=== PATIENT | male | born 1995 | race Caucasian/White ===

== ENCOUNTER 2016-10-18 06:39 | Emergency (ER) | payer OTHER ==
[2016-10-18] MEDS ORDERED: FENTANYL 250 MCG/5 ML VIAL ONE (07:00)
[2016-10-18] MEDS ORDERED: KETOROLAC TROMETHAMINE 30 MG/ML VIAL ONE (07:16)
[2016-10-18] MEDS ORDERED: HYDROmorphone HCL 1 MG/ML SYR ONE (07:16)
[2016-10-18] MEDS ORDERED: ONDANSETRON HCL 4 MG/2 ML VIAL ONE (07:17)
--- NOTE | 2016-10-18 08:25 | ER NURSING DOCUMENTATION ---
Nurse's Notes [facility] Name:Alberto Arias Age:21 yrs Sex:Male :1995 Arrival Date:10/18/2016 Time:06:39 Bed4 Private MD:Physician, No Diagnosis:Kidney Stone w/ Colic;Dehydration Presentation: 10/18 06:44 Acuity: LUPE 3 tg 07:20 Presenting complaint: Patient states: Pt awoke this AM to sudden, severe, right flank tg pain. No hx of kidney stones. 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 Transition of care: patient was not received from another setting of care. 07:20 Method Of Arrival: EMS: 410 tg Triage Assessment: 07:22 General: Appears in no apparent distress, Behavior is cooperative. Pain: Complains of tg pain in posterior aspect of right lateral abdomen. Neuro: Level of Consciousness is awake, alert. Respiratory: Respiratory effort is even, unlabored. Derm: Skin is pink, warm & dry. Musculoskeletal: Historical: - Allergies: No known drug Allergies; - Home Meds: 1. None - PMHx: None; - PSHx: None; - Tetanus: < 10 years. - Ebola Screening: : Patient negative for fever greater than or equal to 101.5 degrees Fahrenheit, and additional compatible Ebola Virus Disease symptoms. Patient denies exposure to infectious person. Patient denies travel to an Ebola-affected area in the 21 days before illness onset. No symptoms or risks identified at this time. . - Immunization history: Flu Vaccine >1 year. - Social history: Smoking status: Patient states was never smoker of tobacco. Screenin:23 Infectious Disease Risk Unable to Obtain. Abuse screen: Denies threats or abuse. Denies tg injuries from another. Nutritional screening: No deficits noted. Assessment: 07:23 See Triage Assessment done by same RN. tg Vital Signs: 07:00 BP 138 / 72; Pulse 83; Resp 14; Temp 98.2(O); Pulse Ox 94% ; Weight 106.59 kg (R); tg Height 6 ft. 1 in. (185.42 cm) (R); Pain 5/10; 08:23 BP 107 / 51; Pulse 59; Resp 14; Pulse Ox 92% on R/A; Pain 1/10; tg 07:00 Body Mass Index 31.00 (106.59 kg, 185.42 cm) tg Reid Coma Score: 07:15 Eye Response: spontaneous(4). Verbal Response: oriented(5). Motor Response: obeys cd commands(6). Total: 15. ED Course: 06:40 Patient arrived in ED. em2 06:40 Physician, No is Private Physician. em2 06:42 Avery Corley MD is Attending Physician. cd 06:44 Triage completed. tg 07:02 Meng Garcia, RN is Primary Nurse. tg 07:23 Arm band placed on Bed in low position Call Light in Reach HOB Elevated Side rails up tg x1. 07:23 Valuables Remains with patient. Pulse Ox - RN Monitoring Only. Diet: Patient is NPO. tg 07:23 Maintain field IV. Gauge & site: 18g LAC. Oxygen Oxygen administration via nasal tg cannula @ 2L/min. Administered Medications: 07:06 Drug: NS 0.9% 1000 ml; Route: IV; Rate: bolus; Site: left antecubital; Delivery: tg [place] Tubing; 07:40 Follow up: IV Status: Completed infusion; IV Intake: 1000ml tg 07:13 Drug: Toradol 30 mg; Route: IVP; Site: left antecubital; tg 07:41 Follow up: Response: Pain is decreased tg 07:13 Drug: Dilaudid 0.5 mg; Route: IVP; Site: left antecubital; tg 07:41 Follow up: Response: Pain is decreased tg 07:13 Drug: Zofran 4 mg; Route: IVP; Infused Over: 2 mins; Site: left antecubital; tg 07:41 Follow up: Response: Pain is decreased tg Point of Care Testing: Urine Dip: 07:23 pH: 6; ; Specific [place]: 1.03; Ketones: Negative; Glucose: Negative; Protein: tg Negative; Leukocytes: Negative; Nitrite: Negative ; Blood: Large (+++); Bilirubin: Negative ; Urobilinogen: Normal Intake: :40 IV: 1000ml; Total: 1000ml. tg Outcome: 08:06 Discharge ordered by . cd 08:23 Discharged to home ambulatory, with friend. tg 08:23 Condition: stable 08:23 Discharge Assessment: Patient awake, alert and oriented x 3. No cognitive and/or functional deficits noted. Patient verbalized understanding of disposition instructions. 08:23 Instructed on discharge instructions, follow up and referral plans. medication usage, urine strainer, Prescriptions given X 2. 08:23 IV D/Jamie 08:24 Patient left the ED. christ 10/19 14:20 Discharge F/U Call: Spoke with: patient. Are you having any pain? no. Have you filled ke your prescriptions? yes. Did your discharge instructions answer all of your questions? yes Discharge F/U Call: What is the one thing you feel we could do to improve? Patient's answer: Pt. feeling much better, pain free now. Believe that the stone passed last night. No questions. Signatures: Meng Garcia, RN RN Avery Corley MD MD cd Reina-reg, Garima-[facility] em2 Jeannine De La Rosa RN KT gallardo
--- NOTE | 2016-10-18 08:25 | ER PHYSICIAN DOCUMENTATION ---
Physician Documentation [facility] Name:Alberto Arias Age:21 yrs Sex:Male :1995 Arrival Date:10/18/2016 Time:06:39 Bed4 Private MD:Physician, No ED Avery Grubbs Disposition: 10/18 08:20 Chart complete. cd Disposition: 10/18/16 08:06 Discharged to Home/Self Care. Impression: Kidney Stone w/ Colic, Dehydration. - Condition is Fair. - Discharge Instructions: DEHYDRATION (7y-Adult), KIDNEY STONE w/ Colic. - Prescriptions for Zofran 4 mg Oral - take 1 tablet by ORAL route every 6 hours; 6 tablet. Hydrocodone- Acetaminophen 5-325 mg Oral - take 1 tablet by ORAL route every 6 hours As needed; 12 tablet. - Medical Reconciliation form form. - Follow up: Private Physician; When: 2 - 3 days; Reason: Recheck today's complaints, Continuance of care. - Problem is new. - Symptoms have improved. - Notes: Drink 2 - 3 quarts of water every day. No work today.... Strain all urine for stones.... Take Ibuprofen 600mg by mouth every 6 hours for 2 days Take Hydrocodone 1 tab by mouth every 6 hours with food for severe pain Take Zofran 4mg under your tongue every 6 hours for nausea or vomiting... HPI: 06:50 This 21 yrs old Male presents to ER via EMS with complaints of Back Pain. cd 06:50 The patient presents with pain that is acute, with no known mechanism of injury. The cd symptoms are located in the right mid back. Onset: The symptoms/episode began/occurred acutely, this morning. The pain radiates RLQ of abdomen. Associated signs and symptoms: Pertinent positives: abdominal pain, nausea, Pertinent negatives: vomiting. Severity of symptoms: At their worst the symptoms were severe, in the emergency department the symptoms have improved, mildly. The patient has not experienced similar symptoms in the past. Historical: - Allergies: No known drug Allergies; - Home Meds: 1. None - PMHx: None; - PSHx: None; - Tetanus: < 10 years. - Ebola Screening: : Patient negative for fever greater than or equal to 101.5 degrees Fahrenheit, and additional compatible Ebola Virus Disease symptoms. Patient denies exposure to infectious person. Patient denies travel to an Ebola-affected area in the 21 days before illness onset. No symptoms or risks identified at this time. . - Immunization history: Flu Vaccine >1 year. - Social history: Smoking status: Patient states was never smoker of tobacco. ROS: 07:15 ENT: Negative for injury, pain, epistaxis and discharge. cd Cardiovascular: Negative for chest pain, palpitations, edema and pleuritic pain. Respiratory: Negative for shortness of breath, dyspnea on exertion, cough, sputum production, wheezing, hemoptysis and pleuritic chest pain. MS/Extremity: Negative for injury, deformity, edema, calf tenderness, pain or coldness. Skin: Negative for injury, rash, itching and discoloration. 07:15 Neuro: Negative for headache, weakness, numbness, tingling, and seizure. cd 07:15 Constitutional: Positive for poor PO intake, Negative for chills, fever. 07:15 Abdomen/GI: Positive for abdominal pain, nausea, anorexia, of the right lower quadrant, Negative for vomiting, diarrhea. 07:15 Back: Positive for pain at rest. 07:15 : Positive for flank pain, Negative for urinary symptoms. 07:15 All other systems are negative. Exam: 07:15 Constitutional: The patient appears alert, awake, non-toxic, well developed, well cd nourished, anxious, in obvious distress, moderately distressed. 07:15 Cardiovascular: Rate: normal, Pulses: no pulse deficits are appreciated, Heart sounds: normal. 07:15 Respiratory: the patient does not display signs of respiratory distress, Respirations: normal, Breath sounds: are normal, clear throughout. 07:15 Abdomen/GI: Inspection: abdomen appears normal, Bowel sounds: normal, Palpation: moderate abdominal tenderness, in the right lower quadrant, rebound tenderness, is not appreciated, voluntary guarding, is not appreciated, involuntary guarding, is not appreciated, no appreciated organomegaly, Rectal exam: the exam is deferred. 07:15 Back: pain, that is moderate, of the right mid back, ROM is normal, CVA tenderness, that is moderate, is noted on the right. 07:15 : CVA tenderness, on the right. 07:15 Neuro: Motor: is normal, Sensation: is normal, Gait: is steady, Deep tendon reflexes are normal. ENT: Nares patent. No nasal discharge, no septal abnormalities noted. Tympanic membranes are normal and external auditory canals are clear. Oropharynx with no redness, swelling, or masses, exudates, or evidence of obstruction, uvula midline. Mucous membranes dry Neck: Trachea midline, no thyromegaly or masses palpated, and no cervical lymphadenopathy. Supple, full range of motion without nuchal rigidity, or vertebral point tenderness. No Meningismus. Chest/axilla: Normal chest wall appearance and motion. Nontender with no deformity. No lesions are appreciated. Skin: Warm, dry with normal turgor. Normal color with no rashes, no lesions, and no evidence of cellulitis. 07:15 MS/ Extremity: Pulses equal, no cyanosis. Neurovascular intact. Full, normal range cd of motion. 07:15 Back: normal spinal alignment noted. Vital Signs: 07:00 BP 138 / 72; Pulse 83; Resp 14; Temp 98.2(O); Pulse Ox 94% ; Weight 106.59 kg (R); tg Height 6 ft. 1 in. (185.42 cm) (R); Pain 5/10; 08:23 BP 107 / 51; Pulse 59; Resp 14; Pulse Ox 92% on R/A; Pain 1/10; tg 07:00 Body Mass Index 31.00 (106.59 kg, 185.42 cm) tg Castella Coma Score: 07:15 Eye Response: spontaneous(4). Verbal Response: oriented(5). Motor Response: obeys cd commands(6). Total: 15. MDM: 06:42 Patient medically screened. cd 06:45 Data interpreted: Pulse oximetry: on room air is 92 %. Interpretation: normal. cd 07:15 Differential diagnosis: Pyelonephritis ruptured disc, sprain, Ureterolithiasis. cd 07:20 Data reviewed: vital signs, nurses notes, old medical records, lab test result(s), cd urinalysis, and as a result, I will continue to observe the patient, administer IV fluids, NS bolus, NS maintenence, prescribe pain medication, Dilaudid, Toradol. 08:20 Counseling: I had a detailed discussion with the patient and/or guardian regarding: the cd historical points, exam findings, and any diagnostic results supporting the discharge/admit diagnosis, lab results, the need for outpatient follow up, for a recheck, with the patient's primary care provider, to return to the emergency department if symptoms worsen or persist or if there are any questions or concerns that arise at home. Response to treatment: the patient's symptoms have markedly improved after treatment, the patient's condition has returned to base line, patient is well hydrated. and as a result, I will discharge patient. 10/18 06:44 Order name: Iv Saline Lock; Complete Time: 07:13 cd 10/18 06:52 Order name: Urine Dip; Complete Time: 07:14 tg Dispensed Medications: 07:06 Drug: NS 0.9% 1000 ml; Route: IV; Rate: bolus; Site: left antecubital; Delivery: tg [place] Tubing; 07:40 Follow up: IV Status: Completed infusion; IV Intake: 1000ml tg 07:13 Drug: Toradol 30 mg; Route: IVP; Site: left antecubital; tg 07:41 Follow up: Response: Pain is decreased tg 07:13 Drug: Dilaudid 0.5 mg; Route: IVP; Site: left antecubital; tg 07:41 Follow up: Response: Pain is decreased tg 07:13 Drug: Zofran 4 mg; Route: IVP; Infused Over: 2 mins; Site: left antecubital; tg 07:41 Follow up: Response: Pain is decreased tg Point of Care Testing: Urine Dip: 07:23 pH: 6; ; Specific [place]: 1.03; Ketones: Negative; Glucose: Negative; Protein: tg Negative; Leukocytes: Negative; Nitrite: Negative ; Blood: Large (+++); Bilirubin: Negative ; Urobilinogen: Normal Signatures: Meng Garcia RN RN Avery Corley MD MD
== END 2016-10-18 08:25 | disposition home or self-care (01) ==
LOC: ER 06:39
DX: N20.0 Calculus of kidney (principal); N23 Unspecified renal colic; E86.0 Dehydration; R11.0 Nausea; Z99.89 Dependence on other enabling machines and devices; Z74.3 Need for continuous supervision
CPT/HCPCS: 96361; 96374; 96375; 99284; A0425; A0427; J1170; J1885; J2405